=== PATIENT | female | born 1950 | race Caucasian/White ===

== ENCOUNTER 2020-05-25 10:43 | Outpatient (CLI) | payer MEDICARE, SELFPAY | END 2020-05-25 10:44 | disposition home or self-care (01) | LOC: ANHAUDIO 10:45 | PROVIDERS: PCP Family Medicine; Visit Provider Family Medicine | DX: H91.90 Unspecified hearing loss, unspecified ear (principal) | CPT/HCPCS: 92557; 92567 ==

== ENCOUNTER → 2020-12-30 07:46 | Outpatient (CLI) | payer MEDICARE, SELFPAY ==
--- NOTE | ~2020-12-30 | MR_ITS ---
EXAMINATION: MR thoracic spine wo con DATE: 12/30/2020 08:23 INDICATION: Thoracic radiculitis. TECHNIQUE: Magnetic resonance imaging (MRI) of the thoracic spine was performed without intravenous c ontrast. Sagittal localizer T1-weighted FSE of the cervical spine was obtained. Thoracic spine sequen ena included sagittal T2-weighted FSE, sagittal T1-weighted FSE, sagittal T2-weighted FS FSE, and axi al T2-weighted FSE. COMPARISON: Thoracic spine MRI 01/26/2019 FINDINGS: There is 16 degrees dextroscoliosis of thoracic spine and 29 degrees levoscoliosis of lumba r spine. There are changes of anterior fusion procedure from C4 to C7. There is mild chronic anterior wedging of T5, T6, T7, T8, T12, and L1 vertebral bodies. There is decreased disc height at most leve ls, severe from T1-T2 through T9-T10 and at T12-L1. The discs are bulging from C7-T1 through T10-T11 and at T12-L1 with mild central canal stenosis at all of these levels. There is multilevel facet join t osteoarthritis, mild at most levels. There is multilevel mild neural foraminal stenosis bilaterally . On the right, there is moderate neural foraminal stenosis at C7-T1, T1-T2, T2-T3, T3-T4, T4-T5, T5- T6, and T6-T7. On the left, there is moderate neural foraminal stenosis at T2-T3, T3-T4, and T9-T10 a nd severe neural foraminal stenosis at T1-T2 and T12-L1. The spinal cord signal intensity is normal. The conus medullaris is at L1-L2. IMPRESSION: 1. Severe thoracic spondylosis, stable from 01/26/2019. 2. Scoliosis. Reviewed, dictated and finalized at location B.
== END ==
PROVIDERS: PCP Family Medicine
DX: M47.24 Other spondylosis with radiculopathy, thoracic region (principal); M41.9 Scoliosis, unspecified
CPT/HCPCS: 72146

== ENCOUNTER 2021-04-13 10:00 | Outpatient (RCR) | payer MEDICARE, SELFPAY ==
--- NOTE | 2021-03-02 09:29 | PTOPEVAL ---
PHYSICAL THERAPY EVALUATION AND PLAN OF CARE Thank you for referring Lana Franks to [facility].? The patient is scheduled to be seen for therapy? 2x/week for 3 weeks. Please review, sign, date and return this plan of care JOSÉ. I agree with and certify that the following plan of care is medically necessary. Referring Physician Date Attending Provider: Dorcas Padilla MD Evaluation Diagnosis thoracic back pain and lower back pain Subjective Information chronic back pain in thoracic Query Text:As Reported By Patient/ and lumbar region. Symptoms Family are progressing and states that she will wake up with a lot of pain. States that when standing for too long or sleeping too long there is increased pain. She has a lot of stiffness in the spine feeling like she can hardly move. Self Report Pain Assessment Spine, Thoracic Reported Pain Level 5 Pain Description Aching,Tightness Pain Frequency Chronic,Continuous Lowest Pain Intensity 2 Greatest Pain Intensity 8 Pain Aggravating Factors Prolonged Position Pain Score Pain Score 5: Self Report Interventions Used Interventions Used By Clinicians Exercise,Joint Mobilization Cervical and Lumbar ROM Lumbar ROM Lumbar Flexion Active Ankle Query Text:Hands to: Lumbar Extension (0-40) 15 Query Text:Active in Degrees Lumbar Comments scoliosis: lumbar levoscoliosis, thoracic dextroscoliosis; lumbar extension hinged at L2 Lower Extremity Muscle Strength Testing Hip Strength Right Hip Flexion Strength 4 Good Hip Extension Strength 4- Good - Hip Abduction Strength 4- Good - Hip Medial Rotation Strength 4 Good Hip Lateral Rotation Strength 4 Good Left Hip Flexion Strength 5 Normal Hip Extension Strength 5 Normal Hip Abduction Strength 5 Normal Hip Medial Rotation Strength 4+ Good + Hip Lateral Rotation Strength 5 Normal Knee Strength Bilateral Knee Flexion Strength 5 Normal Knee Extension Strength 5 Normal Upper Extremity Muscle Strength Testing Scapular/Shoulder Bilateral Shoulder Elevation - Upper Trapezius 4+ Good + Scapular Retraction - Rhomboid 3- Fair - Scapular Retraction - Middle Trapezius 2+ Poor + Scapular Retraction - Lower Trapezius 2+ Poor + Scapular Protraction - Serratus 3- Fair - Posture Posture Standing Position Head/C-Spine Postu
--- NOTE | 2021-03-22 09:40 | PTOPEVAL ---
PHYSICAL THERAPY PROGRESS REPORT AND PLAN OF CARE UPDATE Thank you for referring Lana Franks to [facility].? The patient is scheduled to be seen for therapy? for a follow-up in 3 weeks. Please review, sign, date and return this plan of care JOSÉ. I agree with and certify that the following plan of care is medically necessary. Referring Physician Date Attending Provider: Dorcas Padilla MD Diagnosis thoracic back pain and lower back pain Subjective Information sleeping has improved and is Query Text:As Reported By Patient/ better able to stand for Family longer periods of time. Overall feeling better. Still experiencing some pain and tightness. Doing a good job with her exercises. Pain Assessment Timing of Pain Assessment Timing of Pain Assessment Pre-Treatment Pain Scale Pain Scale Used Numeric (1 - 10) Self Report Pain Assessment Spine, Thoracic Reported Pain Level 2 Pain Score Pain Score 2: Self Report Interventions Used Interventions Used By Clinicians Exercise,Manual Therapy Techniques Cervical and Lumbar ROM Lumbar ROM Lumbar Flexion Active Floor Query Text:Hands to: Lumbar Extension (0-40) 20 Query Text:Active in Degrees Lower Extremity Muscle Strength Testing Hip Strength Right Hip Flexion Strength 5 Normal Hip Extension Strength 4 Good Hip Abduction Strength 4 Good Hip Medial Rotation Strength 5 Normal Hip Lateral Rotation Strength 4+ Good + Left Hip Flexion Strength 5 Normal Hip Extension Strength 5 Normal Hip Abduction Strength 5 Normal Hip Medial Rotation Strength 4+ Good + Hip Lateral Rotation Strength 5 Normal Knee Strength Bilateral Knee Flexion Strength 5 Normal Knee Extension Strength 5 Normal Posture Posture Standing Position Head/C-Spine Posture Forward Head Thoracic Spine Posture Fixed Scoliosis on (R) Lumbar Spine Posture Increased Lordosis,Flexible Scoliosis on (L) General Exercise General Exercises Side Bilateral Exercise Type Active,Stretching Exercise Description -unilateral lift x15 each Query Text:Record Sets, Reps, side Resistance, and Position -unilateral bridge x15 each side -prone hip extension with knee flexed x15 each side -hip flexor stretch x30 seconds x2 each side -prone
--- NOTE | 2021-04-13 11:22 | PTOPEVAL ---
PHYSICAL THERAPY DISCHARGE NOTE Thank you for referring Lana Franks to [facility]. Please review, sign, date and return this plan of care JOSÉ. I agree with and certify that the following plan of care is medically necessary. Referring Physician Date Attending Provider: Dorcas Padilla MD Discharge Diagnosis thoracic back pain and lower back pain Subjective Information Is here after 3 weeks of Query Text:As Reported By Patient/ traveling. She reports no Family regression in progress. States that it feels the best when the muscles are worked on. Asked about if massage therapy would be productive. Self Report Pain Assessment Spine, Thoracic Reported Pain Level 2 Pain Score Pain Score 2: Self Report Interventions Used Interventions Used By Clinicians Exercise,Manual Therapy Techniques Lower Extremity Muscle Strength Testing Hip Strength Right Hip Flexion Strength 5 Normal Hip Extension Strength 4+ Good + Hip Abduction Strength 4+ Good + Hip Medial Rotation Strength 5 Normal Hip Lateral Rotation Strength 4+ Good + Left Hip Flexion Strength 5 Normal Hip Extension Strength 5 Normal Hip Abduction Strength 5 Normal Hip Medial Rotation Strength 4+ Good + Hip Lateral Rotation Strength 5 Normal Upper Extremity Muscle Strength Testing Scapular/Shoulder Bilateral Shoulder Elevation - Upper Trapezius 4+ Good + Scapular Retraction - Rhomboid 3+ Fair + Scapular Retraction - Middle Trapezius 3 Fair Scapular Retraction - Lower Trapezius 3 Fair Scapular Protraction - Serratus 3+ Fair + Manual Therapy Manual Therapy Side Bilateral Manual Therapy Location Spine, Lumbar Patient Position Sidelying Movement Findings Moderate Hypomobility Treatment Comments TPR and soft tissue Query Text:Include Technique and mobilization right gluteus Result of Technique medius and left quadratus lumborum PT Clinical Summary Lana is a 70 yo female presenting to outpatient physical therapy with c/o progressing middle and lower back pain. She does have diagnosis of scoliosis and thoracic spondylosis. Lana presents today with significantly improved muscle length and tissue quality. She does continue
== END 2021-05-19 11:41 | disposition home or self-care (01) ==
LOC: ANHPT 10:00
PROVIDERS: PCP Family Medicine; Visit Provider Family Medicine
DX: M54.16 Radiculopathy, lumbar region (principal); M54.6 Pain in thoracic spine
CPT/HCPCS: 97110; 97140; 97162

== ENCOUNTER → 2021-06-29 11:38 | Outpatient (CLI) | payer MEDICARE, SELFPAY ==
--- NOTE | ~2021-06-29 | XR_ITS ---
EXAMINATION: XR chest 2V 06/29/2021 12:16 INDICATION: Chronic cough PROCEDURE: 2 view chest COMPARISON: 05/10/2014 FINDINGS: The lungs are clear. The cardiomediastinal silhouette is enlarged. There are no pleural ef fusions. There is no pneumothorax suspected. IMPRESSION: 1: NO ACUTE CARDIOPULMONARY DISEASE. 2: Cardiomegaly. Reviewed, dictated and finalized at location B.
== END ==
PROVIDERS: PCP Family Medicine; Visit Provider Family Medicine
DX: R05.3 Chronic cough (principal); I51.7 Cardiomegaly
CPT/HCPCS: 71046

== ENCOUNTER 2022-06-20 08:53 | Outpatient (CLI) | payer MEDICARE, SELFPAY ==
--- NOTE | ~2022-06-20 | XR_ITS ---
EXAMINATION: XR abdomen/kub 1V INDICATION: Hematuria unspecified TECHNIQUE: Supine views of the abdomen were obtained on 2 radiographs. COMPARISON: None FINDINGS: Bowel contents project over the kidneys limiting sensitivity for renal stones. No definite nephrolithiasis is identified. A density projecting to the right of the L1 vertebral body on one radi ograph is not seen on the other, possibly reflecting bowel contents. There are multiple phleboliths i n the pelvis. No stones are identified along the expected courses of the ureter or within the urinary bladder. The bowel gas pattern is normal. There is severe lumbar spondylosis. IMPRESSION: 1. No definite urolithiasis identified. Reviewed, dictated and finalized at location A.
--- NOTE | 2022-06-20 09:23 | ECG_ITS ---
Measurements Intervals [place] Rate: 80 P: 60 FL: 163 QRS: -65 QRSD: 83 T: 53 QT: 373 QTc: 432 Interpretive Statements SINUS RHYTHM POSSIBLE LEFT ATRIAL ENLARGEMENT [-0.1mV P WAVE IN V1/V2] PATTERN CONSISTENT WITH PULMONARY DISEASE POSSIBLE RIGHT VENTRICULAR CONDUCTION DELAY [RSR (QR) IN V1/V2] LEFT ANTERIOR FASCICULAR BLOCK [QRS AXIS <= -45, QR IN I, RS IN II] NO PREVIOUS ECG AVAILABLE FOR COMPARISON Electronically Signed On 06-21-2022 13:02:56 CDT by Britt Sandoval M.D.
== END 2022-06-20 08:54 | disposition home or self-care (01) ==
PROVIDERS: PCP Family Medicine; Visit Provider Physician Assistant
DX: E78.2 Mixed hyperlipidemia (principal); R31.9 Hematuria, unspecified; R94.31 Abnormal electrocardiogram [ECG] [EKG]
CPT/HCPCS: 74018; 93005

== ENCOUNTER 2022-07-04 09:36 | Outpatient (CLI) | payer MEDICARE, SELFPAY ==
--- NOTE | 2022-07-04 09:38 | ECHO_ITS ---
Patient Info Name: Lana Franks Age: 72 years : 1950 Gender: Female Ht: 63 in Wt: 159 lbs BSA: 1.81 m2 HR: 78 bpm BP: 141 / 75 mmHg Technical Quality: Good Exam Date: 07/04/2022 10:09 AM Exam Location: [facility] Patient Status: Outpatient Admit Date: 07/04/2022 Staff Ordering Physician: Dorcas Padilla MD Family Consumer Science Teacher: Rachel Parmar RDCS Attending Provider: Dorcas Padilla MD Referring Physician: Randy COLLINS; Exam Type: CA echo doppler color flow Study Info Indications - cardiomegaly Complete two-dimensional, color flow and Doppler transthoracic echocardiogram is performed. Summary 1. Complete two-dimensional, color flow and Doppler transthoracic echocardiogram is performed. 2. Left ventricular chamber dimension is normal. 3. Left ventricular systolic function is normal, estimated at 60-65%. 4. The left ventricular diastolic function is normal. 5. Global longitudinal strain is normal at -17.4%. 6. There is moderate aortic valve sclerosis. 7. There is trace aortic valve regurgitation. 8. There is trace mitral valve regurgitation. 9. There is trace tricuspid valve regurgitation. 10. No pulmonary hypertension, estimated pulmonary arterial systolic pressure is 25 mmHg. 11. There is trace pulmonic regurgitation. 12. There is trivial pericardial effusion. Left Ventricle Tissue doppler E/e' is not calculated. Global longitudinal strain is normal at -17.4%. Left ventricular chamber dimension is normal. Left ventricular systolic function is normal, estimated at 60-65%. The left ventricular diastolic function is normal. Right Ventricle Right ventricular chamber dimension is normal. Right ventricular systolic function is normal. Left Atria Left atrial chamber dimension is normal. Right Atria Right atrial chamber dimension is normal. Aortic Valve The aortic valve is trileaflet. There is moderate aortic valve sclerosis. There is no aortic valve stenosis. There is trace aortic valve regurgitation. Pulmonic Valve There is trace pulmonic regurgitation. Mitral Valve There is no mitral valve stenosis. There is trace mitral valve regurgitation. Tricuspid Valve There is trace tricuspid valve regurgitation. No pulmonary hypertension, estimated pulmonary arterial systolic pressure is 25 mmHg. Pericardium/Pleural There is trivial pericardial effusion. Inferior Vena Cava Normal inferior vena cava with >50% collapse upon inspiration consistent with normal right atrial pressure, 5 mmHg. Aorta The aortic root size at the sinus of Valsalva is normal. Left Ventricular Outflow Tract Name Value Normal LVOT 2D LVOT Diameter 2.0 cm LVOT Doppler LVOT Peak Gradient 5 mmHg LVOT Mean Gradient 3 mmHg LVOT VTI 23 cm LVOT VTI/AV VTI Ratio 0.7 LVOT Stroke Volume 74 ml LVOT CO 16.9 l/min LVOT CI 9.3 l/min/m2 Pulmonic Valve
== END 2022-07-04 09:37 | disposition home or self-care (01) ==
PROVIDERS: PCP Family Medicine; Visit Provider Family Medicine
DX: I51.7 Cardiomegaly (principal); R05.3 Chronic cough; R53.83 Other fatigue
CPT/HCPCS: 93306

== ENCOUNTER 2023-01-16 11:34 | Emergency (ER) | payer MEDICARE, SELFPAY ==
--- NOTE | ~2023-01-16 | XR_ITS ---
EXAMINATION: XR chest 2V 01/16/2023 12:28 INDICATION: Swallowed foreign body PROCEDURE: 2 view chest COMPARISON: 06/29/2021 FINDINGS: The lungs are clear. The cardiomediastinal silhouette is within normal limits. There are no pleural effusions. There is no pneumothorax suspected. There is moderate thoracic spondylosis wa s dextroscoliosis. No acute osseous abnormality. IMPRESSION: 1: NO ACUTE CARDIOPULMONARY DISEASE. Reviewed, dictated and finalized at location B.
--- NOTE | ~2023-01-16 | XR_ITS ---
EXAMINATION: XR abdomen/kub 1V DATE: 01/16/2023 12:28 INDICATION: Foreign body ingestion. TECHNIQUE: A supine view of the abdomen on 2 radiographs was obtained. COMPARISON: Abdomen radiographs 06/20/2022 FINDINGS: There are no dilated loops of bowel. There is a dental bridge overlying the cecum. IMPRESSION: 1. Dental bridge overlying the cecum. Reviewed, dictated and finalized at location A.
[2023-01-16 11:52] VITALS: BP 144/72; PULSE 88; RESP 18; TEMP 36.6; O2SAT 100
--- NOTE | 2023-01-16 12:11 | ED.GENADULT ---
HPI - General Adult General Chief complaint: Unspecified Stated complaint: ?foreign body ingestion Time Seen by Provider: 01/16/23 12:03 History of Present Illness HPI narrative: 72-year-old female presents with concern that she possibly swallowed her dental bridge. patient states she was out to dinner last Monday and noticed it was gone after the dinner. Patient has been checking stools daily but patient is not in stool. Patient denies abdominal pain, trouble swallowing, or shortness of breath. Patient contacted PCP today and was instructed to come to the emergency room for imaging. Onset (ago): day(s) Treatments prior to arrival: other (Check stools) Related Data Home Medications Medication Instructions Recorded Confirmed vit C,E,zinc,copper-[id number] 250 1 cap PO DAILY 05/26/20 01/10/23 mg-lutein 5 mg-zeaxanthin 1 mg capsule (Ocuvite Adult 50 Plus) calcium carbonate 168 mg calcium 168 mg PO QID 09/16/20 01/10/23 (420 mg) chewable tablet (Alcalak) Allergies Allergy/AdvReac Type Severity Reaction Status Date / Time Penicillins Allergy Mild Rash Verified 01/16/23 11:57 Review of Systems Review of Systems: A 10 system review of systems was completed on the patient and is negative except for what is stated in the HPI. Nursing and ancillary documentation was reviewed. [facility] Past Medical History Medical History Anemia Anxiety Arthritis BMI 28.0-28.9,adult Insomnia Lumbar radiculopathy Mammogram not needed Mixed hyperlipidemia Osteoporosis without current pathological fracture Surgical History Surgical History History of total left knee replacement 2013 Family History Family History Father Family history of diabetes mellitus in first degree relative Mother Family history of malignant neoplasm of breast in first degree relative Other Family history of coronary artery disease Family history of elevated blood lipids Social History Social History Smoking status: Former smoker (smoked for 2 years at age [age] years old) Second hand tobacco smoke exposure: No Alcohol intake: current Alcohol use details: occasional Lack of Transportation: No Lack of Food: Never True Current Housing: I Have Housing Concerned About Future Housing: No Difficulty Paying Gas/Electric Bills: No Difficulty Paying for Meds: No Currently Unemployed: No Education: High School Diploma/GED Difficulty w/ Childcare or Family Care: No Living arrangements: with family Occupation/Education: retired Gender identity (if verbalized by the patient): Female Exam Narrative: GENERAL: Well-appearing, well-nourished, and in no acute distress. HEAD: Normocephalic, atraumatic. EYES: PERRLA and EOMI. ENT: Nares clear, no rhinorrhea or epistaxis. Mucous membranes moist. NECK: Supple. CHEST: Clear to auscultation. No respiratory distress. HEART: Regular rate and rhythm. No murmur heard. Normal peripheral pulses. ABDOMEN: Soft, nontender, nondistended, normal active bowel sounds. EXTREMITIES: Normal range of motion. No edema. SKIN: Warm, dry, no rash. NEURO: No focal deficits. Alert and oriented x3. PSYCH: Normal mood and affect. Course Course Emergency Course: Follow-up with Dr. Kathleen in 2 to 4 days for repeat imaging of abdomen. Dr. Chaney consulted on this patient and would like to be notified if bridge has not moved. Consultations Consultation #1: Spoke with Dr. Chaney with GI. Recommending conservative treatment and repeat imaging in 4 days Date: 01/16/23 Time: 12:25 Consultation #2: Spoke with Dr. Kathleen patient's PCP and notified her of needing repeat imaging and [address] Kathleen agreed with plan of care Date: 01/16/23 Time: 12:46 Vital Signs Vital sig
[2023-01-16 12:32] VITALS: RESP 18; O2SAT 98
[2023-01-16 13:13] LABS: Basophils Absolute Auto 0.1 K/mm3 (0.0-0.1); Basophils Percent Auto 0.6 % (0.2-1.2); Eosinophils Absolute Auto 0.4 K/mm3 (0-0.3); Eosinophils Percent Auto 4.4 % (0-4.4); Hematocrit 42.8 % (37.0-47.0); Immature Granulocyte Absolute 0.03 K/mm3 (0.00-0.031); Immature Granulocyte Percent A 0.3 % (0-0.5); Lymphocytes Absolute Auto 2.44 K/mm3 (0.9-3.2); Lymphocytes Percent Auto 28.1 % (18.3-44.2); Mean Corpuscular HGB Conc 32.7 g/dl (32-36); Mean Corpuscular Hemoglobin 29.4 pg (26-34); Mean Corpuscular Volume 89.7 fl (80-100); Mean Platelet Volume 8.9 fl (7.4-10.4); Monocytes Absolute Auto 0.7 K/mm3 (0.1-0.6); Monocytes Percent Auto 8.1 % (2.6-8.5); Neutrophils Absolute Auto 5.1 K/mm3 (1.3-6.7); Neutrophils Percent Auto 58.5 % (45.5-73.1); Platelet Count Result 327 k/mm3 (150-375); Red Blood Count 4.77 M/mm3 (4.2-5.4); Red Cell Distribution Width 13.4 % (11.5-14.5); White Blood Count 8.7 K/mm3 (4.5-10.0)
[2023-01-16 13:19] LABS: Alanine Aminotransferase 23 U/L (6-35); Albumin Level 4.5 g/dL (3.5-5.1); Alkaline Phosphatase 131 U/L (38-126); Anion Gap 4 mmol/L (8-16); Aspartate Amino Transferase 30 U/L (14-36); Bilirubin,Total 0.8 mg/dL (0.2-1.3); Blood Urea Nitrogen 25 mg/dL (7-17); Calcium 9.1 mg/dL (8.4-10.2); Carbon Dioxide 31 mmol/L (22-30); Chloride 104 mmol/L (98-107); Estimated Glomerular Filt Rate > 60; Glucose 107 mg/dL (65-110); Potassium 4.2 mmol/L (3.4-5.0); Sodium 139 mmol/L (137-145)
== END 2023-01-16 13:49 | disposition home or self-care (01) ==
PROVIDERS: Emergency Provider Nurse Practitioner Family; PCP Family Medicine
DX: T18.3XXA Foreign body in small intestine, initial encounter (principal); D64.9 Anemia, unspecified; F41.9 Anxiety disorder, unspecified; M19.90 Unspecified osteoarthritis, unspecified site; E78.5 Hyperlipidemia, unspecified
CPT/HCPCS: 36415; 71046; 74018; 80053; 85025; 99283

== ENCOUNTER 2023-01-18 10:17 | Outpatient (CLI) | payer MEDICARE, SELFPAY ==
--- NOTE | ~2023-01-18 | XR_ITS ---
Supine and upright views of the abdomen Clinical history: Ingested dental bridge COMPARISON: 01/16/2023 Findings: Radiopaque foreign body again present in the right lower quadrant, similar to prior exam, c onsistent with ingested dental bridge. Gas pattern otherwise nonspecific. No abnormal mass lesion or calcification is seen. Stable levoscoliosis and degenerative change in the lumbar spine.. Impression: Ingested dental bridge again present at the right lower quadrant, essentially unchanged in position. Reviewed, dictated and finalized at location M. Impression: Ingested dental bridge again present at the right lower quadrant, essentially u nchanged in position.
== END 2023-01-18 10:18 | disposition home or self-care (01) ==
PROVIDERS: PCP Family Medicine; Visit Provider Family Medicine
DX: T18.9XXA Foreign body of alimentary tract, part unspecified, initial encounter (principal)
CPT/HCPCS: 74018

== ENCOUNTER 2023-01-20 09:53 | Outpatient (CLI) | payer MEDICARE, SELFPAY ==
--- NOTE | ~2023-01-20 | XR_ITS ---
XR abdomen/kub 1V 01/20/2023 10:17 Indication: Foreign body of the alimentary tract. Procedure: KUB Comparison: Comparison to multiple prior studies sequentially, with oldest reviewed study dated 06/11. Findings: Stable position to radiopaque foreign body in the right lower abdomen near the expected loc ation of the cecum. Bowel pattern nonobstructive. There are multiple pelvic phleboliths. Severe lumba r spondylosis with levoscoliosis. Impression: 1: Stable position of radiopaque foreign body in the right lower abdomen. No obstruction. Reviewed, dictated and finalized at location B. Impression: 1: Stable position of radiopaque foreign body in the right lower abdomen. No ob struction.
== END 2023-01-20 09:54 | disposition home or self-care (01) ==
LOC: ANHIMG 09:57
PROVIDERS: PCP Family Medicine; Visit Provider Family Medicine
DX: T18.9XXA Foreign body of alimentary tract, part unspecified, initial encounter (principal)
CPT/HCPCS: 74018

== ENCOUNTER 2023-01-23 10:22 | Outpatient (CLI) | payer MEDICARE, SELFPAY ==
--- NOTE | ~2023-01-23 | XR_ITS ---
Supine and upright views of the abdomen Clinical history: Ingested foreign body COMPARISON: 01/28/2023 Findings: Bowel gas pattern is nonspecific. No evidence for obstruction or free air. Ingested dental bridge is again present at the right lower quadrant, essentially unchanged in position. No abnormal m ass lesion or calcification is seen. Stable levoscoliosis and degenerative spondylosis of lumbar spin e. Impression: Ingested dental bridge is at the right lower quadrant, unchanged in position from prior exam. Reviewed, dictated and finalized at location M. Impression: Ingested dental bridge is at the right lower quadrant, unchanged in position fr om prior exam.
== END 2023-01-23 10:23 | disposition home or self-care (01) ==
LOC: ANHIMG 10:26
PROVIDERS: PCP Family Medicine; Visit Provider Family Medicine
DX: T18.9XXA Foreign body of alimentary tract, part unspecified, initial encounter (principal)
CPT/HCPCS: 74018

== ENCOUNTER 2023-01-27 01:42 | Day surgery (SDC) | payer MEDICARE, SELFPAY ==
[2023-01-25 09:53] VITALS: BMI 27.3
[2023-01-27 10:14] VITALS: BP 112/66; PULSE 89; RESP 16; TEMP 36.3; O2SAT 100; BMI 26.6
--- NOTE | 2023-01-27 10:38 | WPDANESEPPF ---
Anes - Initial Pre Proc Eval Procedure: Operation Date: 01/27/23 11:30 Proposed Procedures p Colonoscopy - Maxwell Josue MD Date/Time: 01/27/23 10:38 Surgeon: Maxwell Josue MD Pre Op Diagnosis: foreign body in colon Patient Data Age: 72 Gender: F Height: 1.6 m Weight: 68.4 kg Last Vital Signs Temp 97.3 F L 01/27/23 10:14 Pulse 89 01/27/23 10:14 Resp 16 01/27/23 10:14 BP 112/66 01/27/23 10:14 Pulse Ox 100 01/27/23 10:14 O2 Del Method Room Air 01/27/23 10:14 Allergies Allergy/AdvReac Type Severity Reaction Status Date / Time Penicillins Allergy Mild Rash Verified 01/27/23 10:12 Home Medications Medication Instructions Recorded Confirmed Type vit C,E,zinc,copper-gbaak9d 250 1 cap PO DAILY 05/26/20 01/27/23 History mg-lutein 5 mg-zeaxanthin 1 mg capsule (Ocuvite Adult 50 Plus) calcium carbonate 168 mg calcium 168 mg PO QID 09/16/20 01/27/23 History (420 mg) chewable tablet (Alcalak) bimatoprost 0.03 % drops with 1 applic topical DAILY #3 mL 12/20/21 01/27/23 Rx applicator, eyelash base (Latisse) misoprostol 200 mcg tablet 200 mcg PO BID #60 tabs 08/01/22 01/27/23 Rx atorvastatin 20 mg tablet 20 mg PO DAILY #90 tabs 08/30/22 01/27/23 Rx diclofenac sodium 75 mg 75 mg PO BID #60 tabs 08/30/22 01/27/23 Rx tablet,delayed release zolpidem 10 mg tablet (Ambien) 10 mg PO QHS PRN insomnia #30 tabs 12/28/22 01/27/23 Rx paroxetine HCl 40 mg tablet (Paxil) 20 mg PO DAILY 01/25/23 01/27/23 History Patient hx anesthesia problems: none Family hx anesthesia problems: none Results Review: All pre-operative results and documents have been reviewed as part of the pre-operative evaluation. [facility] Past Medical History Medical History Anemia Anxiety Arthritis BMI 28.0-28.9,adult Insomnia Lumbar radiculopathy Mammogram not needed Mixed hyperlipidemia Osteoporosis without current pathological fracture Surgical History Surgical History History of total left knee replacement 2013 Family History Family History Father Family history of diabetes mellitus in first degree relative Mother Family history of malignant neoplasm of breast in first degree relative Other Family history of coronary artery disease Family history of elevated blood lipids Social History Social History Smoking status: Never smoker Second hand tobacco smoke exposure: No Alcohol intake: current Drinks per week: 2 Alcohol use details: occasional Substance use type: does not use Lack of Transportation: No Lack of Food: Never True Current Housing: I Have Housing Concerned About Future Housing: No Difficulty Paying Gas/Electric Bills: No Difficulty Paying for Meds: No Currently Unemployed: No Education: High School Diploma/GED Difficulty w/ Childcare or Family Care: No Living arrangements: with family Occupation/Education: retired Gender identity (if verbalized by the patient): Female Spiritual care concerns: No Anes - Eval Final PreProcedure Day of Procedure 01/27/23 10:38 Patient weight: normal Heart: regular rate and rhythm Lungs: clear to auscultation Airway: Mallampati scale class II Neurological: alert and oriented Last oral intake: >/= 8 hours ASA classification: III Emergent: no Anesthetic plan: proceed Anesthesia type and monitoring: general GIVS and standard monitoring Results Review: All pre-operative results and documents have been reviewed as part of the pre-operative evaluation. Informed Consent: The patient's anesthetic plan and its attendant risks and benefits were discussed with the patient/family/POA. Questions were solicited and answers provided to the satisfaction of the patient/family/POA.
[2023-01-27] MEDS: LACTATED RINGERS 1,000 ML 150 ML IV CONT (10:42)
--- NOTE | 2023-01-27 10:50 | PM.HPGS ---
History of Present Illness History of Present Illness Consent: Risks, benefits, and alternatives have been discussed and questions answered. Patient agrees to proceed with procedure. Chief complaint: foreign body in colon Narrative: Lana Frnaks is a 72 year old female Presents for colonoscopy. Patient reports that 2-1/2 weeks ago she when out to eat. Later that night when she got home she tried to eat a snack and found that she was missing her bridge. It was found that she had swallowed bridge containing 3 teeth. Upon presenting to the emergency room abdominal x-ray revealed this to be passed into the small intestine. Several follow-up x-rays every feel that this fails to progress and appears to be retained in the right lower quadrant of the abdomen. Patient presents today for colonoscopy in an attempt to retrieve this foreign body. Patient reports recent surgery on her right toe because of arthritis she underwent a fusion and wears a boot on her right toe. Review of Systems Review of Systems: Review of systems noncontributory. [facility] Past Medical History Medical History Anemia Anxiety Arthritis BMI 28.0-28.9,adult Insomnia Lumbar radiculopathy Mammogram not needed Mixed hyperlipidemia Osteoporosis without current pathological fracture Surgical History Surgical History History of total left knee replacement 2013 Family History Family History Father Family history of diabetes mellitus in first degree relative Mother Family history of malignant neoplasm of breast in first degree relative Other Family history of coronary artery disease Family history of elevated blood lipids Social History Social History Smoking status: Never smoker Second hand tobacco smoke exposure: No Alcohol intake: current Drinks per week: 2 Alcohol use details: occasional Substance use type: does not use Lack of Transportation: No Lack of Food: Never True Current Housing: I Have Housing Concerned About Future Housing: No Difficulty Paying Gas/Electric Bills: No Difficulty Paying for Meds: No Currently Unemployed: No Education: High School Diploma/GED Difficulty w/ Childcare or Family Care: No Living arrangements: with family Occupation/Education: retired Gender identity (if verbalized by the patient): Female Spiritual care concerns: No Meds Home Medications and Allergies Home Medications Medication Instructions Recorded Confirmed Type vit C,E,zinc,copper-yacwe8h 250 1 cap PO DAILY 05/26/20 01/27/23 History mg-lutein 5 mg-zeaxanthin 1 mg capsule (Ocuvite Adult 50 Plus) calcium carbonate 168 mg calcium 168 mg PO QID 09/16/20 01/27/23 History (420 mg) chewable tablet (Alcalak) bimatoprost 0.03 % drops with 1 applic topical DAILY #3 mL 12/20/21 01/27/23 Rx applicator, eyelash base (Latisse) misoprostol 200 mcg tablet 200 mcg PO BID #60 tabs 08/01/22 01/27/23 Rx atorvastatin 20 mg tablet 20 mg PO DAILY #90 tabs 08/30/22 01/27/23 Rx diclofenac sodium 75 mg 75 mg PO BID #60 tabs 08/30/22 01/27/23 Rx tablet,delayed release zolpidem 10 mg tablet (Ambien) 10 mg PO QHS PRN insomnia #30 tabs 12/28/22 01/27/23 Rx paroxetine HCl 40 mg tablet (Paxil) 20 mg PO DAILY 01/25/23 01/27/23 History Allergies Allergy/AdvReac Type Severity Reaction Status Date / Time Penicillins Allergy Mild Rash Verified 01/27/23 10:12 Vital Signs Vital Signs - 24 hr 01/27/23 10:14 Temperature 97.3 F L Pulse Rate 89 Respiratory Rate 16 Blood Pressure 112/66 Pulse Oximetry 100 Oxygen Delivery Room Air Exam Narrative: Physical exam reveals patient to be alert. Vital signs stable. HEENT exam is unremarkable. Patient anicteric. Lungs are clear.
--- NOTE | 2023-01-27 11:48 | SUR.OPER ---
DENTAL BRIDGE SUCCESSFULLY REMOVED FROM COLON. BRIDGE TAKEN TO STERILE PROCESSING FOR DECONTAMINATION AND WILL BE RETURNED TO PATIENT AT A LATER DATE.
[2023-01-27 11:49] VITALS: BP 92/46; PULSE 72; RESP 16; O2SAT 96
[2023-01-27 11:59] VITALS: BP 118/66; PULSE 74; RESP 20; O2SAT 99
[2023-01-27 12:09] VITALS: BP 119/59; PULSE 72; RESP 20; O2SAT 100
--- NOTE | 2023-01-30 09:31 | SUR.PHASEII ---
01/30/23 0929 PATIENT HERE TO RESIDENTIAL PROGRAM DIRECTOR HER RETRIEVED DENTAL APPLIANCE FROM MONDAY. DENTAL APPLIANCE SENT TO CENTRAL PROCESSING TO BE DECONTAMINATED. DENTAL APPLIANCE RETRIEVED FROM CENTRAL PROCESS THIS MORNING AND GIVE TO THE PATIENT IN A PEEL PACK WRAPPER.
== END 2023-01-27 12:16 | disposition home or self-care (01) ==
PROVIDERS: PCP Family Medicine; Visit Provider Internal Medicine Gastroenterology
PROC: 0DJD8ZZ Inspection of Lower Intestinal Tract, Via Natural or Artificial Opening Endoscopic (ICD-10-PCS; CPT 45378; principal; 2023-01-27 11:30)
DX: T18.4XXA Foreign body in colon, initial encounter (principal); E78.2 Mixed hyperlipidemia; M19.90 Unspecified osteoarthritis, unspecified site; M54.16 Radiculopathy, lumbar region; M81.0 Age-related osteoporosis without current pathological fracture; Z96.652 Presence of left artificial knee joint; F41.9 Anxiety disorder, unspecified
CPT/HCPCS: 45379; J2704; J7120

== ENCOUNTER 2023-12-25 10:26 | Outpatient (CLI) | payer MEDICARE, SELFPAY ==
[2023-12-25 11:15] LABS: Alanine Aminotransferase 23 U/L (6-35); Albumin Level 4.5 g/dL (3.5-5.1); Alkaline Phosphatase 100 U/L (38-126); Anion Gap 5 mmol/L (4-12); Aspartate Amino Transferase 32 U/L (14-36); Bilirubin,Total 1.5 mg/dL (0.2-1.3); Blood Urea Nitrogen 22 mg/dL (7-17); Calcium 9.3 mg/dL (8.4-10.2); Carbon Dioxide 28 mmol/L (22-30); Chloride 106 mmol/L (98-107); Cholesterol 172 mg/dL (0-200); Estimated Glomerular Filt Rate > 60; Glucose 99 mg/dL (65-110); HDL Direct 51 mg/dL; Potassium 4.2 mmol/L (3.4-5.0); Sodium 139 mmol/L (137-145); Triglycerides 127 mg/dL (<150)
[2023-12-25 11:30] LABS: LDL Cholesterol Direct 102 mg/dL
[2023-12-25 11:46] LABS: Thyroid Stimulating Hormone 0.415 uIU/mL (0.465-4.680)
[2023-12-25 12:09] LABS: Hemoglobin A1C 5.8 % (<5.7)
== END 2023-12-25 10:27 | disposition home or self-care (01) ==
LOC: ANHLAB 10:31
PROVIDERS: PCP Family Medicine; Visit Provider Physician Assistant
DX: E11.9 Type 2 diabetes mellitus without complications (principal); Z13.1 Encounter for screening for diabetes mellitus; Z13.220 Encounter for screening for lipoid disorders; R53.83 Other fatigue
CPT/HCPCS: 36415; 80053; 80061; 83036; 84439; 84443

== ENCOUNTER 2024-02-02 08:08 | Outpatient (CLI) | payer MEDICARE, SELFPAY ==
--- NOTE | ~2024-02-02 | MR_ITS ---
EXAMINATION: MR thoracic spine wo con DATE: 02/02/2024 09:29 INDICATION: Mid and low back pain. TECHNIQUE: Magnetic resonance imaging (MRI) of the thoracic spine was performed without intravenous c ontrast. Sagittal localizer T1-weighted FSE of the cervical spine was obtained. Thoracic spine sequen ena included sagittal T2-weighted FSE, sagittal T1-weighted FSE, sagittal T2-weighted FS FSE, and axi al T2-weighted FSE. COMPARISON: Thoracic spine MRI 12/30/2020 FINDINGS: There is 26 degrees dextroscoliosis of thoracolumbar spine. There are changes of anterior f usion procedure from C4 to C7. There is mild chronic anterior wedging of T4-T6, T12, and L1 vertebral bodies. There is severely decreased disc height from C7-T1 through T9-T10, moderately decreased disc height at T10-T11, and severely decreased disc height from T12-L1 through L3-L4. The discs are bulgi ng at all thoracic levels with mild central canal stenosis. There is multilevel facet joint osteoarth ritis, severe at multiple levels. There is multilevel mild neural foraminal stenosis bilaterally. On the right, there is moderate neural foraminal stenosis at T1-T2, T2-T3, and T3-T4. On the left, there is moderate neural foraminal stenosis at T1-T2 and T2-T3 and severe neural foraminal stenosis at T12 -L1. The spinal cord signal intensity is normal. The conus medullaris is at L1-L2. IMPRESSION: 1. Severe thoracic spondylosis, stable from 01/26/2019. 2. Thoracolumbar dextroscoliosis. Reviewed, dictated and finalized at location A.
--- NOTE | ~2024-02-02 | MR_ITS ---
MRI of the lumbar spine Clinical History: Radiculopathy Technique: Axial T2-weighted images, and sagittal T1-weighted, T2-weighted, and T2 fat-sat images wer e acquired. COMPARISON: 11/24/2018 Findings: There is 32 degrees levoscoliosis, apex at the L3 level. No acute fracture or anteroposteri or subluxation evident. No suspicious bone marrow signal abnormality seen. At L1-L2, there is severe degenerative disc narrowing. There is diffuse disc bulge and severe facet a rthropathy. There is mild central canal stenosis. There is severe bilateral neural foraminal compromi se. At L2-L3, there is advanced degenerative disc narrowing. There is mild disc bulge with severe facet a rthropathy, right worse than left. No aida central canal stenosis. There is severe right neural fora roel narrowing, and mild left neural foraminal narrowing. At L3-L4, there is advanced degenerative disc narrowing. There is mild diffuse disc bulge with severe facet arthropathy. No central canal stenosis. There is severe right neural foraminal narrowing, and mild left neural foraminal narrowing. At L4-L5, there is diffuse disc bulge with severe facet arthropathy. No central canal stenosis. There is moderate to severe bilateral neural foraminal narrowing, right worse than left. At L5-S1, there is diffuse disc bulge with severe facet arthropathy. No central canal stenosis. There is severe left neural foraminal narrowing, and moderate right neural foraminal narrowing. Paravertebral soft tissues are unremarkable. Impression: Severe degenerative spondylosis throughout the lumbar spine with significant levoscoliosis, as detail ed above. Reviewed, dictated and finalized at [facility]. Impression: Severe degenerative spondylosis throughout the lumbar spine with significant le voscoliosis, as detailed above.
== END 2024-02-02 08:09 ==
PROVIDERS: PCP Family Medicine; Visit Provider Nurse Practitioner Family
DX: M54.14 Radiculopathy, thoracic region (principal); M43.04 Spondylolysis, thoracic region; M41.85 Other forms of scoliosis, thoracolumbar region
CPT/HCPCS: 72146; 72148

== ENCOUNTER 2024-02-26 09:30 | Outpatient (CLI) | payer MEDICARE, SELFPAY ==
--- NOTE | ~2024-02-26 | XR_ITS ---
XR cervical spine 4-5V Ordering provider: Antoine Prado MD History: . Cervical spondylosis . Comparison: None. FINDINGS: VERTEBRAL BODIES: Anterolisthesis seen at the level of C3-C4. Postoperative changes seen in the lower cervical area. DISK SPACES: Narrowing of the disc C3-C4. Multilevel facet joint disease. Intervertebral foraminal na rrowing bilaterally. PARASPINOUS SOFT TISSUES: No prevertebral soft tissue swelling. IMPRESSION: Anterolisthesis of the level of C3-C4. Multilevel degenerative changes with multilevel facet joint disease. Reviewed, dictated and finalized at location A.
== END 2024-02-26 09:31 ==
PROVIDERS: PCP Family Medicine; Visit Provider Pain Medicine Pain Medicine
DX: M47.892 Other spondylosis, cervical region (principal); M43.12 Spondylolisthesis, cervical region
CPT/HCPCS: 72050

== ENCOUNTER 2024-04-15 14:12 | Outpatient (CLI) | payer MEDICARE, SELFPAY ==
--- NOTE | ~2024-04-15 | XR_ITS ---
AP and lateral views of the right hip Clinical history: Pain Findings: No acute fracture or dislocation is seen. Osseous alignment is anatomic. Right hip joint is preserved. Soft tissues are unremarkable. Impression: No significant abnormality is seen. Reviewed, dictated and finalized at location . Impression: No significant abnormality is seen.
== END 2024-04-15 14:13 ==
PROVIDERS: PCP Family Medicine; Visit Provider Family Medicine
DX: M25.551 Pain in right hip (principal)
CPT/HCPCS: 73502

== ENCOUNTER 2024-06-07 10:18 | Outpatient (CLI) | payer MEDICARE, SELFPAY ==
--- NOTE | ~2024-06-07 | XR_ITS ---
3 VIEWS THORACIC SPINE Ordering provider: Jeronimo Boucher, [facility] History: . Facet arthropathy,thoracic . Comparison: None. FINDINGS: VERTEBRAL BODIES: Normal height and alignment. No visible fracture or subluxation. Dextroscoliosis. D egenerative changes of the spine. Postoperative changes in the lower cervical area. DISK SPACES: Narrowing of multiple levels disc space in the mid and upper thoracic area. SOFT TISSUES: Normal. IMPRESSION: No acute osseous abnormality of the thoracic spine. Reviewed, dictated and finalized at location A.
== END 2024-06-07 10:19 | disposition home or self-care (01) ==
PROVIDERS: PCP Family Medicine; Visit Provider Nurse Practitioner Family
DX: M12.88 Other specific arthropathies, not elsewhere classified, other specified site (principal)
CPT/HCPCS: 72072

== ENCOUNTER 2024-12-27 08:01 | Outpatient (CLI) | payer MEDICARE, SELFPAY ==
--- NOTE | ~2024-12-27 | XR_ITS ---
HISTORY: M25.511 - Pain in right shoulder COMPARISON: None TECHNIQUE: 3 views of the right shoulder were performed FINDINGS: No acute fracture. The glenohumeral joint space is maintained. The acromioclavicular joint space is narrowed with osteophyte formation. The visualized portion of the adjacent right lung is clear. The humeral head is well seated within the glenoid fossa. IMPRESSION: Degenerative disease, without acute fracture or anterior dislocation Reviewed, dictated and finalized at location A. IMPRESSION: Degenerative disease, without acute fracture or anterior dislocati on
== END 2024-12-27 08:02 | disposition home or self-care (01) ==
LOC: MICIMG 08:03
PROVIDERS: PCP Family Medicine; Visit Provider Orthopaedic Surgery
DX: M19.011 Primary osteoarthritis, right shoulder (principal)
CPT/HCPCS: 73030

== ENCOUNTER 2025-03-05 13:32 | Outpatient (CLI) | payer MEDICARE, SELFPAY ==
--- NOTE | ~2025-03-05 | MR_ITS ---
Procedure: MR shoulder RT wo con Ordering provider: Hector Aguirre MD History: . M75.81 - Other shoulder lesions, right shoulder . Comparison: Technique: MRI right shoulder without contrast. FINDINGS: ACROMIOCLAVICULAR JOINT: Moderate arthropathy. No medial coracoacromial arch stenosis. ROTATOR CUFF: The supraspinatus tendon shows bright signal at the insertion which is suggestive of te ndinosis versus partial tear. No subacromial subdeltoid bursitis. No evidence for subcoracoid impinge ment. Bright signal is seen in the area of the insertion of the subscapularis tendon which may indica te tendinosis versus partial tear. PROXIMAL BICEPS TENDON: The proximal biceps tendon and biceps labral complex are normal. The rotator interval is normal as visualized without intraarticular contrast. INFERIOR GLENOHUMERAL LIGAMENT COMPLEX: Normal anterior and posterior bands. Normal axillary pouch. LABRUM: The superior labrum is normal. The anteroinferior labrum is normal. The posterior labrum is normal. BONES: Mild degenerative osseous cysts are seen involving the greater tuberosity of the humerus. Mar row signal is otherwise normal. GLENOHUMERAL JOINT SPACE: The glenohumeral joint space is is narrowed with irregularity in the cartil age suggestive of mild to moderate osteoarthritic changes. No joint effusion. SUPERFICIAL AND DEEP SOFT TISSUES: Otherwise, normal. No paralabral cyst. IMPRESSION: Tendinosis versus partial tear in the supraspinatous and subscapularis tendons. Moderate osteoarthritic changes of the acromioclavicular joint. Mild to moderate osteoarthritic changes of the glenohumeral joint. Reviewed, dictated and finalized at location A.
== END 2025-03-05 13:33 | disposition home or self-care (01) ==
LOC: MICIMG 13:32
PROVIDERS: PCP Family Medicine; Visit Provider Orthopaedic Surgery
DX: M75.81 Other shoulder lesions, right shoulder (principal); M19.011 Primary osteoarthritis, right shoulder
CPT/HCPCS: 73221

== ENCOUNTER 2025-06-03 01:56 | Day surgery (SDC) | payer MEDICARE, SELFPAY ==
[2025-05-23 15:02] VITALS: BMI 27.0
--- NOTE | 2025-05-23 15:33 | PC.NURSE ---
Report to the Outpatient Waiting Room, entrance under the green pavilion located off [facility], at time ___11:30AM____ on date ___06/03/25____. Planned Procedure Time: ___1:30PM .? Time changes happen often and if your time is changed the preop area will call you the afternoon before. - You and your visitor will be asked to self-screen and do not enter if you have any COVID symptoms. Please call surgeon if you need to reschedule. - A mask is optional within the hospital at this time. Patients may have clear liquids (water, carbonated beverages, clear teas, apple juice) until 3 hours prior to surgery (10:30AM) with a maximum of 20 ounces. - No food from midnight until time of surgery and no smoking, or chewing tobacco (or any form of nicotine). No chewing gum, candy or mints. Take only the following medications with a SIP of water on the morning of surgery: ___PAROXETINE DO NOT STOP ANY OF YOUR OTHER PRESCRIPTION MEDICATIONS PRIOR TO SURGERY EXCEPT THE FOLLOWING Hold all vitamins and supplements for 3 days per anesthesiologist.LAST DOSE 05/30/25 Medications to discontinue per physician ____HOLD DICLOFENAC (ALL NSAIDS) 7 DAYS PRE-OP PER DR REESE Date to take last dose____05/26/25 Please no make-up, nail yi, hairspray, perfume, deodorant, or body powder the day of surgery.? No jewelry (including any body piercings) or valuables the day of surgery, leave them at home.? Please take a shower or bath the night before, or the morning of, surgery with an antibacterial soap.? Wear comfortable, loose fitting clothing.? Children are encouraged to wear pajamas. - Jewelry must be removed prior to entering the operating room.? Rings and piercings that are not removed may be cut off. - The hospital will not accept responsibility for valuables.? - Please leave all valuables, including medications, at home the day of surgery. If you are going home after surgery, a licensed high lift driver must drive you home.? - NO public transportation without another adult if you receive anesthesia. - We recommend that an adult stay with you for 24 hours following discharge. - We also recommend that you do not drive, make important decision, drink alcoholic beverages, or take any drugs that were not prescribed by your health care provider for at least 24 hours after your discharge time. For Pediatric surgeries, we recommend two adults accompany the child home. Follow any additional instructions given to you from your surgeon. Telephone instructions given to ____PATIENT and asked if any additional questions and then verbalized understanding. Patient advised to call surgeon office or pre surgery nurse liaison [phone] if any additional questions.
[2025-06-03] VITALS (10 sets, daily range): BP systolic 105–159; BP diastolic 52–91; PULSE 77–98; RESP 16–20; TEMP 36.1–36.6; O2SAT 92–100
--- OUTSIDE RECORDS SUMMARY | 2025-06-03 01:59 | XMS_ITS | Encounter Summary ---
Author Organization [facility] Address [address] [place] [address] Phone Care Team Providers Care Pharmacy Stock Clerk Name Role Phone Dorcas Padilla MD Primary Care Provider [phone] Encounter Details Date Type Department Care Team (Late st Contact Info) Description 10/17/2019 Telephone [facility] Medicine Surgery [facility] [address] [place] [address] Ame Pendleton Social History Tobacco Use Types Packs/Day Years Used Date Smoking Tobacco: Never Alcohol Use Standard Drinks/Week Comments Yes 0 (1 standard drink = 0.6 oz pur e alcohol) Comments Unknown Sex and Gender Information Value Date Recorded Sex Assigned at Not on file 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 difficile Comment:after knee surgery03/201611/24/2016 11/23/2016 documented as of this encounter Care Teams Pharmacy Stock Clerk Relationship Specialty Start Date End Date Dorcas Padilla MD PCP - General 03/07/08 documented as of this encounter
--- OUTSIDE RECORDS SUMMARY | 2025-06-03 01:59 | XMS_ITS | Clinical Summary ---
Author Organization [facility] Address [address] [place] [address] Care Team Providers Care Online Publisher Name Role Phone Dorcas Padilla MD Primary Care Provider [phone] Allergies Active Allergy Reactions Criticality Noted Date Comments Penicillins Rash Reaction: RASH, Medications multivitamin tablet Take 1 tablet by mouth 3 (three) times a day with meals Active atorvastatin (LIPITOR) 20 mg tablet Take 20 mg by mouth nightly Active diclofenac-miSO PROStol DR (ARTHROTEC 70) 75-200 mg-mcg EC tablet TK 1 T PO BID 09/01/2019 Active PARoxetine (PAXIL) 40 mg tablet Take 40 mg by mouth every morning Active Active Problems Problem Noted Date Diagnosed Date 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 Malignant neoplasm of breast 06/30/2010 Surgical History Surgery Date Site/Laterality Comments MASTECTOMY Breast Surgery Mastectomy - (Added by TW Conv) HYSTERECTOMY TOE FUSION 03/11/2007 - 04/10/2007 Left with plate MASTECTOMY 05/12/2010 - 06/10/2010 Bilateral Prophylactic THUMB FUSION 02/09/2013 - 03/10/2013 Right with pin REPLACEMENT TOTAL KNEE 03/11/2016 - 04/10/2016 Left HAND SURGERY Family History Medical History Relation Name Comments Diabetes Father Breast cancer Mother Breast cancer Sister Relation Name Status Comments Father Mother Sister Social History Tobacco Use Types Packs/Day Years Used Date Smoking Tobacco: Never Smokeless Tobacco: Never Alcohol Use Standard Drinks/Week Comments Yes 0 (1 standard drink = 0.6 oz pur e alcohol) Comments Unknown Sex and Gender Information Value Date Recorded Sex Assigned at Not on file 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 Gender Identity Female 05/06/2020 6:31 AM CDT Sexual Orientation Straight 05/06/2020 6: 31 AM CDT Obstetrics History Last Filed Vital Signs Vital Sign Reading Time Taken Comments Blood Pressure 114/65 05/13/2020 11:44 AM CDT Pulse 71 05/13/2020 11:44 AM CDT Temperature 36.2 C (97.2 F) 05/13/2020 11:44 AM CDT Respiratory Rate - - Oxygen Saturation 97% 05/13/2020 11:44 AM CDT Inhaled Oxygen Concentration - - Weight 72.1 kg (159 lb) 05/13/2020 11:44 AM CDT Height 161.3 cm (5' 3.5) 05/13/2020 11:44 AM CD T Body Mass Index 27.72 05/13/2020 11:44 AM CDT Plan of Treatment Not on file Additional Health Concerns Infection Onset Date Last Indicated C. difficile Comment:after knee surgery03/201611/24/2016 11/23/2016 Insurance [facility]ICARE [facility] MEDICARE [facility] Care Teams Online Publisher Relationship Specialty Start Date End Date Dorcas Padilla MD PCP - General 03/07/08
--- OUTSIDE RECORDS SUMMARY | 2025-06-03 01:59 | XMS_ITS | Clinical Summary ---
Author Organization [facility] Address [facility] [place] [address] Care Team Providers Care Rn Bsn Name Role Phone Dorcas Padilla MD Primary Care Provider [phone] Allergies Active Allergy Reactions Criticality Noted Date Comments Penicillins Unknown 12/28/2022 Allergy since childhood Medications PARoxetine (PAXIL) 20 MG tablet Take 1 tablet (20 mg total) by mouth every morning. Active diclofenac EC (VOLTAREN) 75 MG tablet Take 1 tablet (75 mg total) by mouth 2 (two) times daily. Active calcium carb-cholecalci ferol (CALTRATE 600+D) 600-20 MG-MCG tablet Take 1 tablet by mouth 2 (two) times daily. Active atorvastatin (LIPITOR) 20 MG tablet Take 1 tablet (20 mg total) by mouth nightly at bedtime. Active multiple vitamins-minera ls (OCUVITE-LUTEIN ) Cap Take 1 capsule by mouth daily. Active Multiple Vitamin (MULTIVITAMIN ADULT OR) Take 1 tablet by mouth daily. Active oxyCODONE-aceta minophen (PERCOCET) 5-325 MG tabletIndicatio ns:Acute Pain < 7 Day Supply Take 1 tablet by mouth every 4 (four) hours as needed for Pain. Indications: Acute Pain < 7 Day Supply 30 tablet 01/05/2023 Active Active Problems No known active problems Immunizations Immunization Administration Dates Next Due MODERNA COVID-19 (SPECIAL EDUCATION DIRECTOR COSME ABRAHAM), MRNA, LNP-S, PF, 50 MCG/ 0.25 ML DOSE 01/26/2022 Family History Medical History Relation Comments COPD Father Diabetes Father Heart Disease Father COPD Mother Cancer Mother Cancer Sister Relation Status Comments Father Alive Mother Alive Sister Social History Tobacco Use Types Packs/Day Years Used Date Smoking Tobacco: Never Smokeless Tobacco: Never Alcohol Use Standard Drinks/Week Comments Yes 1.7 (1 standard drink = 0.6 oz p ure alcohol) Comments No Sex and Gender Information Value Date Recorded Sex Assigned at Not on file Legal Sex Female 10:41 AM CDT Gender Identity Not on file Sexual Orientation Not on file Last Filed Vital Signs Vital Sign Reading Time Taken Comments Blood Pressure 138/83 01/05/2023 10:40 AM CDT after getting up to bathroom Pulse 86 01/05/2023 10:40 AM CDT Temperature 36.6 C (97.8 F) 01/05/2023 10:40 AM CDT Respiratory Rate 16 01/05/2023 10:4 0 AM CDT Oxygen Saturation 97% 01/05/2023 10: 40 AM CDT Inhaled Oxygen Concentration - - Weight 70.3 kg (154 lb 15.7 oz) 01/05/2023 6:30 AM CDT Height 161.3 cm (5' 3.5) 01/05/2023 6: 30 AM CDT Body Mass Index 27.02 01/05/2023 6:30 AM CDT Plan of Treatment Health Maintenance Due Date Last Done Comments Colorectal Cancer Screening Colonoscopy (10 Years) 1950 Hepatitis C 1968 Annual Medicare Wellness Visit 2014 Dexa Scan (General) 2014 DTaP, Tdap and Td Vaccines ( 2 - Td or Tdap) 12/10/2023 12/09/2013 RSV Immunization or 60+ Years (1 - 1-dose 75+ series) 2024 COVID-19 Vaccine (3 - 2024-2 6 season) 2025 06/17/2022, 01/26/2022 Pneumococcal Vaccine: 50+ Years Completed 10/15/2018, 07/10/2017 Zoster Vaccines Completed 02/04/2021, 07/20/2020 Meningococcal B Vaccine Aged Out No l onger eligible based on patient's age to complete this topic Meningococcal Vaccine Aged Out No jennifer dann eligible based on patient's age to complete this topic RSV Immunizations Under 20 Months Aged Out No longer eligible b ased on patient's age to complete this topic Medical Devices Implanted Type Area Marine Specialist Device Identifier Shelf Expiration Date Model / Serial / Lot Allosync Guerin Wedge Implanted:Qty: 1 on 01/05/2023 by Desmond Barlow DPM at [facility] Bone Right: Foot [employer] 08/14/2026 [id number] / Low Profile Mtp Plates Contoured Right Titanium Implanted:Qty: 1 on 01/05/2023 by Desmond Barlow DPM at [facility] Plate Right: Foot [employer] [id number] / / 3.0 Mm Low Profile Screw Cortical Titanium Implanted:Qty: 1 on 01/05/2023 by Desmond Barlow DPM at [facility] Screw Right: Foot [employer] [id number] / / 3.0 Mm Low Profile Screw Cortical Titanium Implanted:Qty: 1 on 01/05/2023 by Desmond Barlow DPM at [facility] Screw Right: Foot [employer] [id number] / / 3.0 Mm Low Profile Screw Cortical Titanium Implanted:Qty: 1 on 01/05/2023 by Desmond Barlow DPM at [facility] Screw Right: Foot [employer] [id number] VCL-12 / / 3.0 Mm Low Profile Screw Cortical Titanium Implanted:Qty: 1 on 01/05/2023 by Desmond Barlow DPM at [facility] Screw Right: Foot [employer] [id number]- 14 / / 3.0 Mm Low Profile Screw Cortical Titanium Implanted:Qty: 3 on 01/05/2023 by Desmond Barlow DPM at [facility] Screw Right: Foot [employer] [id number] / / Explanted Type Area Marine Specialist Device Identifier Shelf Expiration Date Model / Serial / Lot Wire .062 Kwire 4in Double Trocar - [id number] Explanted:Qty: 1 on 01/05/2023 by Desmond Barlow DPM at [facility] Wire Right: Foot [employer] 07/20/2025 [id number] / / [id number] Insurance MEDICARE [facility] Care Teams Rn Bsn Relationship Specialty Start Date End Date Dorcas Padilla MD [address] [place] [address] PCP - General FAMILY PRACTICE 12/28/22
--- OUTSIDE RECORDS SUMMARY | 2025-06-03 01:59 | XMS_ITS | Patient Health Record ---
Author Organization [facility] Address [address] [place] [address] Support Name Relationship Address Phone TinyLana Guarantor Unknown [phone] Reason For Referral No Information Medications Medication SIG (Take, Route, Fr equency, Duration) Notes Start Date End Date Status Zithromax Z-Jim 250 MG 2 tablet on the f irst day, then 1 tablet daily for 4 days Orally Once a day; Duration: 5 day(s) 09/26/2013 Active Plan Of Treatment No Information Insurance Providers Payer Name Payer Address Payer Phone Subscriber Number Group Number Insured Name Patient Relationship to Insured Coverage Start Date Coverage End Date [facility] [address] [place] [address] [id number] 4 Tiny Lana Self - patient is the insured [address] [id number] 3 Tiny Lana Self - patient is the insured
--- NOTE | 2025-06-03 09:37 | WPDHPUPDATE1 ---
History and Physical Update Update Date/Time: 06/03/25 09:37 History and Physical has been reviewed, including an updated exam of the patient. There are NO changes in the patient's condition. Risks, benefits, and alternatives have been discussed and questions answered. Patient agrees to proceed with procedure.
[2025-06-03] MEDS: LACTATED RINGERS 1,000 ML 30 ML IV CONT ×2 (12:15→14:25)
[2025-06-03] MEDS: ACETAMINOPHEN 500 MG TABLET 1000 MG PO (12:15)
[2025-06-03] MEDS: KETOROLAC 15 MG/ML VIAL (*BKC) IV PUSH (12:15)
--- NOTE | 2025-06-03 12:32 | WPDANESPNB ---
Anes - Peripheral Nerve Block Date/Time: 06/03/25 12:32 I have discussed with the patient/family/POA the placement of a peripheral nerve block for post-operative pain management, including associated risks, benefits, complications, and side effects. Alternative methods of post-operative analgesia were detailed. Questions were solicited and answers provided to the satisfaction of the patient/family/POA. Time-Out: A pre-procedural Time-Out was completed immediately before starting the procedure and confirmed: Patient Identification, Site, Procedure, Patient Position and the Availability of Requisite Equipment. Clinical Indications: Acute post-operative pain management requested by the operative surgeon. Nerve Block Insertion Note Anes-nerve block: interscalene right Needle: 22 gauge, stimulating, insulated echogenic needle. Needle length: 80 mm Technique: ultrasound Injectate: other (Bupiv 0.5% 15 mls. ) Observations: tolerated well Procedure start time:: 1220 Procedure end time:: 1228
--- NOTE | 2025-06-03 12:34 | WPDANESEPPF ---
Anes - Initial Pre Proc Eval Procedure: Operation Date: 06/03/25 13:30 Proposed Procedures p Right Shoulder Arthroscopic Rotator Cuff Repair with Subacromial Decompression - Hector Aguirre MD Date/Time: 06/03/25 12:34 Surgeon: Hector Aguirre MD Pre Op Diagnosis: right shoulder partial rotator cuff tear Patient Data Age: 74 Gender: F Height: 1.57 m Weight: 67 kg Allergies Allergy/AdvReac Type Severity Reaction Status Date / Time Penicillins Allergy Mild Rash Verified 05/28/25 10:27 Home Medications ?Medication ?Instructions ?Recorded ?Confirmed ?Type vit C,E,copper,zinc-hafak1z 250 1 cap PO DAILY 05/26/20 05/28/25 History mg-lutein 5 mg-zeaxanthin 1 mg capsule (Ocuvite Adult 50 Plus) bimatoprost 0.03 % drops with 1 applic topical DAILY #3 mL 12/20/21 05/28/25 Rx applicator, eyelash base (Latisse) atorvastatin 20 mg tablet 20 mg PO DAILY #90 tabs 07/23/24 05/28/25 Rx diclofenac sodium 75 mg 75 mg PO BID #60 tabs 09/16/24 05/28/25 Rx tablet,delayed release fezolinetant 45 mg tablet (Veozah) 45 mg PO DAILY #90 tabs 01/13/25 05/28/25 Rx zolpidem 10 mg tablet (Ambien) 10 mg PO QHS PRN insomnia #30 tabs 02/18/25 05/28/25 Rx misoprostol 200 mcg tablet 200 mcg PO BID #60 tabs 03/31/25 05/28/25 Rx calcium 600 mg capsule 600 mg PO BID 05/23/25 05/28/25 History paroxetine HCl 40 mg tablet (Paxil) 20 mg PO QAM 05/23/25 05/28/25 History hydrocodone 5 mg-acetaminophen 325 1 - 2 tablet PO Q4-6H PRN pain 7 06/03/25 Rx mg tablet days #30 tabs Patient hx anesthesia problems: none Family hx anesthesia problems: none Results Review: All pre-operative results and documents have been reviewed as part of the pre-operative evaluation. [facility] Past Medical History Medical History Prediabetes Mammogram not needed Insomnia BMI 28.0-28.9,adult Anemia Anxiety Arthritis Lumbar radiculopathy Mixed hyperlipidemia Osteoporosis without current pathological fracture Surgical History Surgical History History of eye surgery 03/28/23 History of total left knee replacement 2013 Family History Family History Father Family history of diabetes mellitus in first degree relative Mother Family history of malignant neoplasm of breast in first degree relative Other Family history of coronary artery disease Family history of elevated blood lipids Social History Social History Smoking status: Never smoker Second hand tobacco smoke exposure: No Alcohol intake: current Drinks per week: 2 Alcohol use details: occasional Substance use type: does not use Do You Feel Safe in your Home?: Yes Lack of Transportation: No Lack of Food: Never True Current Housing: I Have Housing Concerned About Future Housing: No Difficulty Paying Gas/Electric Bills: No Difficulty Paying for Meds: No Currently Unemployed: No Education: High School Diploma/GED Difficulty w/ Childcare or Family Care: No Living arrangements: with family Occupation/Education: retired Gender identity (if verbalized by the patient): Female Spiritual care concerns: No Anes - Eval Final PreProcedure Day of Procedure 06/03/25 12:34 Patient weight: normal Lungs: normal air movement Airway: Mallampati scale class II Neurological: alert and oriented Last oral intake: >/= 8 hours ASA classification: II Emergent: no Anesthetic plan: proceed Anesthesia type and monitoring: general ETT and standard monitoring Results Review: All pre-operative results and documents have been reviewed as part of the pre-operative evaluation. HTN, hyperlipidemia. Informed Consent: The patient's anesthetic plan and its attendant risks and benefits were discussed with the patient/family/POA. Questions were solicited and answers provided to the satisfaction of the patient/family/POA.
[2025-06-03] MEDS: ceFAZolin 2 GM in SODIUM CHLORIDE 0.9% IV 50 ML 100 ML IVPB (12:35)
--- NOTE | 2025-06-03 14:36 | P.OP_ITS ---
Procedure Note - Detailed Date of Procedure 06/03/25 Pre-op Diagnosis Right shoulder partial rotator cuff tear Post-op Diagnosis Other (1. Complete rotator cuff tear 2. Subacromial impingement ) Procedure Performed Right shoulder 1. Arthroscopic rotator cuff repair 2. Arthroscopic subacromial decompression Surgeon Hector Aguirre MD Machine Maintenance Technician Leti Riojas PA-C Anesthesia General Findings High-grade partial tear articular with interstitial component. The bursal side was very thin and attenuated. The tear was completed without difficulty to a medium-sized full-thickness tear without retraction. Good remaining tissue quality. Two tunnel rip stop repair performed. Evidence for subacromial impingement treated with acromioplasty using the arthroscopic bur. Description of Procedure Preoperative antibiotics were given. The patient was bought brought to the operating room. A general anesthetic was administered. The patient was carefully positioned in the beach chair position. The head and neck were carefully positioned. The non operative extremity was also carefully positioned. The shoulder was prepped and draped in the usual sterile fashion. Examination was performed. There were no abnormal findings. Standard posterior and anterior arthroscopic portals were established. Inflow achieved with the arthroscopic pump using saline and epinephrine. The glenohumeral joint was carefully inspected. There was a small area of chondromalacia on the humerus grade 2/3. Otherwise the cartilage was quite reasonably healthy. The labrum showed only minimal fraying. The biceps also was stable without any significant tendinosis. Low-grade partial-thickness tearing of the upper subscapularis was lightly debrided. The supraspinatus showed low to mid grade partial tearing but significant interstitial component. This was marked with a spinal needle and a PDS suture. Attention was turned to the subacromial space. A complete bursectomy was performed. The acromion showed evidence of impingement at the an terolateral aspect. The soft tissue was removed from the undersurface of the acromion and the bur was used to remove bone for adequate acromioplasty. The marked area of the partial articular side tear was palpated and felt to be quite soft and thin. Approximately 10% which was easily debrided with the arthroscopic shaver. This created a non retracted medium size tear by opening the bursal side contiguous with the significant interstitial and articular components. At this point, 2 tunnels were created at the rotator cuff. Three sutures were passed through each tunnel. All sutures were then passed through the cuff tissue. The sutures were tied arthroscopically. The rip stop pattern was used. The arthroscopic instruments were removed. The wounds were closed with 4-0 Monocryl subcuticular suture and steri strips. There were no complications. A sling was applied and the patient brought to the recovery room. Physician assistant property manager, Leti Riojas PA-C, required for surgery; including patient positioning, draping, arthroscopic camera operation, maintaining instrument position, suture retrieval, wound closure, and dressing and sling placement. Estimated Blood Loss 20 Pathology None sent Complications No immediate complications Condition Stable Disposition PACU [facility] Billing Surgery - Charge Forward: Surgery Billing
[2025-06-03] MEDS: oxyCODONE HCL (*CRX) 5 MG TAB IR PO (15:53)
== END 2025-06-03 16:49 | disposition home or self-care (01) ==
PROVIDERS: PCP Family Medicine; Visit Provider Orthopaedic Surgery
PROC: (CPT 29805; principal; 2025-06-03 13:30)
DX: M75.111 Incomplete rotator cuff tear or rupture of right shoulder, not specified as traumatic (principal); M75.81 Other shoulder lesions, right shoulder; G89.18 Other acute postprocedural pain; I10 Essential (primary) hypertension; E78.2 Mixed hyperlipidemia; R73.03 Prediabetes; D64.9 Anemia, unspecified; M81.0 Age-related osteoporosis without current pathological fracture; G47.00 Insomnia, unspecified; M19.90 Unspecified osteoarthritis, unspecified site; Z79.891 Long term (current) use of opiate analgesic; Z98.890 Other specified postprocedural states; Z96.652 Presence of left artificial knee joint; Z80.3 Family history of malignant neoplasm of breast; Z82.49 Family history of ischemic heart disease and other diseases of the circulatory system
CPT/HCPCS: 64415; 29827; 29826; J0690; A4565; A9270; J0166; J1100; J1885; J2003; J2405; J2704; J3010; J7120

== ENCOUNTER 2025-07-01 08:11 | Outpatient (CLI) | payer MEDICARE, SELFPAY ==
--- NOTE | ~2025-07-01 | DEXA_ITS ---
Bone Density Report Name: RUDDY ALEX Age: 74 Sex: Female Ethnicity: White Date of : 1950 Indication: postmenopausal; screening for osteoporosis; height loss; hysterectomy; Referring Provider: RENETTA WALKER Study: Bone densitometry was performed. Exam Date: July 01, 2025 Accession number: [id number] Bone Density: Region BMD T-score Z-score Classification AP Spine(L1-L4) 1.228 1.6 4.1 Normal Femoral Neck (Left) 0.728 -1.1 1.0 Osteopenia Total Hip (Left) 0.955 0.1 1.9 Normal Femoral Neck (Right) 0.729 -1.1 1.0 Osteopenia Total Hip (Right) 0.970 0.2 2.1 Normal Total Hip Mean 0.963 0.2 2.0 Normal World Health Organization criteria for BMD impression classify patients as: Normal (T-score at or above -1.0), Osteopenia (T-score between -1.0 and -2.5), or Osteoporosis (T-score at or below -2.5). 10-year Fracture Risk(1): Major Osteoporotic Fracture 10% Hip Fracture 1.7% Reported Risk Factors: [place] (), Neck BMD=0.728, BMI=28.0 (1) FRAX(R) Version 3.08. Fracture probability calculated for an untreated patient. Fracture probability may be lower if the patient has received treatment. Previous Exams: -- Region Exam Age BMD T-score BMD Change BMD Change Date g/cm2 vs Baseline vs Previous -- AP Spine (L1-L4) 07/01/2025 74 1.228 1.6 26.2%* 6.0%* 02/27/2019 68 1.158 1.0 19.0%* 3.8%* 08/10/2012 62 1.116 0.6 14.7%* 2.2%* 05/23/2008 57 1.092 0.4 12.2%* 12.2%* 05/13/2005 54 0.973 -0.7 Total Hip(Left) 07/01/2025 74 0.955 0.1 -4.3%* -5.5%* 02/27/2019 68 1.011 0.6 1.2% 8.6%* 08/10/2012 62 0.930 -0.1 -6.8%* -3.0%* 05/23/2008 57 0.959 0.1 -3.9%* -3.9%* 05/13/2005 54 0.998 0.5 Total Hip(Right) 07/01/2025 74 0.970 0.2 3.8%* -2.0% 02/27/2019 68 0.990 0.4 6.0%* 6.0%* 08/10/2012 62 0.935 -0.1 0.0% 1.2% 05/23/2008 57 0.924 -0.1 -1.2% -1.2% 05/13/2005 54 0.935 -0.1 -- *Denotes significance at 95% confidence level, LSC for AP Spine = 0.022 g/cm2, LSC for Total Hip = 0.027 g/cm2 Clinical Information Provided by Patient: Has used the following medications: Vitamin D, Calcium Has the following medical conditions: Hysterectomy Patient maximum height was 64 Menopause Age: 54 Drinks caffeinated beverages Onset of menses at age 10 Number of children 2 Impression: The patient has low bone mass, based on the Left Femoral Neck T-score. The patient has an estimated ten-year risk of hip fracture of 1.7% and an estimated ten-year risk of major fracture of 10%, based on the WHO FRAX algorithm. The BMD for the Total Hip(Left) decreased, changing by -5.5% since the last DXA exam. Discussion: BONE DENSITY IS LOW AT ONE OR MORE SKELETAL SITES. This patient's lowest T-score is low at one or more skeletal sites. It meets the World Health Organization's (WHO) criteria for ?low bone mass? (T-score between -1.0 and -2.5). The patient's 10-year risk of fracture as calculated by FRAX is less than the threshold where pharmacological therapy is recommended by the National Osteoporosis Foundation (NOF). However, all treatment decisions require clinical judgment and consideration of individual patient factors, including patient preferences, comorbidities, previous drug use, risk factors not captured in the FRAX model (e.g., frailty, falls, vitamin D deficiency, increased bone turnover, interval significant decline in bone density) and possible under or overestimation of fracture risk by FRAX. The patient should follow a healthful lifestyle (good nutrition with adequate calcium and vitamin D, and appropriate weight-bearing exercise). Follow-Up: Consider repeating this study in 2 years to reassess this patient's status, or sooner if there is some new clinical indication. Reported by: EDWARD on 07/01/2025 8:49:00 AM. Reviewed, dictated and finalized at location A.
== END 2025-07-01 08:12 | disposition home or self-care (01) ==
LOC: MICIMG 08:12
PROVIDERS: PCP Family Medicine Adolescent Medicine
DX: M85.852 Other specified disorders of bone density and structure, left thigh (principal); M85.851 Other specified disorders of bone density and structure, right thigh; Z78.0 Asymptomatic menopausal state
CPT/HCPCS: 77080